=== PATIENT | female | born 1965 | race Caucasian/White ===

== ENCOUNTER 2018-11-10 08:09 | Day surgery (SDC) | payer MEDICAID ==
[~2018-11-10] VITALS: Ht 157.5 cm; Wt 72.5 kg
[2018-11-10] MEDS ORDERED: POLYMYXIN/BACITRACIN 1L IRRIG IRR ONE (08:30)
[2018-11-10] MEDS ORDERED: CLINDAMYCIN 600 MG/D5W (PMX) 50 ML IVPB ONE (08:30)
[2018-11-10] MEDS ORDERED: LIDOCAINE 1%/EPI (1:100,000) (MDV) 20 ML ONE ×2 (09:08→11:13)
[2018-11-10] MEDS ORDERED: HEPARIN 1000 UNITS/ML 10 ML INJ ONE (09:09)
[2018-11-10 09:30] VITALS: Ht 157.5 cm; Wt 72.5 kg
[2018-11-10 09:31] VITALS: BP 119/77; PULSE 68; RESP 16
[2018-11-10] MEDS ORDERED: LACTATED RINGER'S 1,000 ML IV SCH (10:00)
[2018-11-10] MEDS ORDERED: FENTAnyl 50 MCG/ML VIAL ONE (10:06)
[2018-11-10 12:25] VITALS: BP 101/64; PULSE 79; RESP 16
== END 2018-11-10 13:06 | disposition home or self-care (01) ==
LOC: SDS 08:09
PROVIDERS: ATTEND Internal Medicine Hematology & Oncology
DX: C50.911 Malignant neoplasm of unspecified site of right female breast (principal)
CPT/HCPCS: 36561; 76942; C1788; J1644; J3010; Z7610

== ENCOUNTER 2019-03-10 10:07 | Inpatient (IN) | payer MEDICAID ==
[~2019-03-10] VITALS: Ht 160 cm; Wt 73.3 kg
[2019-03-10] VITALS (26 sets, daily range): BP systolic 102–143; BP diastolic 56–74; PULSE 74–124; RESP 13–20; Ht 160 cm; Wt 73.3 kg
[~2019-03-10 10:07] MED LIST: VANCOMYCIN 1 GM 250 ML IVPB SCH
[2019-03-10] MEDS: SOD CHLORIDE 0.9% 1,000 ML IV SCH ×2 (11:18→18:51)
[2019-03-10] MEDS ORDERED: GLYCOPYRROLATE 0.4 MG INJ ONE ×2 (12:54→15:24)
[2019-03-10] MEDS ORDERED: SUCCINYLCHOLINE CHLORIDE 100 MG/5 ML SYG IV ONE (12:54)
[2019-03-10] MEDS ORDERED: LIDOCAINE 2% (SDV) 5 ML INJ ONE (12:54)
[2019-03-10] MEDS ORDERED: MEPERIDINE 100 MG INJ ONE (12:55)
[2019-03-10] MEDS ORDERED: NEOSTIGMINE 3 MG/3 ML SYRINGE ONE ×3 (12:55→15:24)
[2019-03-10] MEDS ORDERED: PROPOFOL 20 ML ONE (12:55)
[2019-03-10] MEDS ORDERED: ROCURONIUM 50 MG INJ ONE ×2 (12:55→16:16)
[2019-03-10] MEDS ORDERED: MEPERIDINE 25 MG INJ IV PRN (13:30)
[2019-03-10] MEDS ORDERED: hydrALAzine 20 MG INJ IV PRN (13:30)
[2019-03-10] MEDS ORDERED: LABETALOL HCL 20MG INJ IV PRN (13:30)
[2019-03-10] MEDS ORDERED: HYDROmorphONE 1 MG/5 ML IV SYRINGE IV PRN ×3 (13:30)
[2019-03-10] MEDS ORDERED: METOCLOPRAMIDE 10 MG INJ IV PRN (13:30)
[2019-03-10] MEDS ORDERED: ONDANSETRON 4 MG INJ IV PRN ×2 (13:30→16:30)
[2019-03-10] MEDS ORDERED: FENTAnyl 50 MCG/ML VIAL IV PRN ×3 (13:30)
[2019-03-10] MEDS ORDERED: MIDAZOLAM 1 MG/ML 2 ML INJ IV PRN (13:30)
[2019-03-10] MEDS ORDERED: EPHEDrine 25 MG/5 ML SYG IV PRN (13:30)
[2019-03-10] MEDS ORDERED: DIPHENHYDRAMINE 50 MG INJ IV PRN (13:30)
[2019-03-10] MEDS ORDERED: EPHEDrine 25 MG/5 ML SYG ONE (15:04)
[2019-03-10] MEDS ORDERED: METOCLOPRAMIDE 10 MG INJ ONE (16:12)
[2019-03-10] MEDS ORDERED: ONDANSETRON 4 MG INJ ONE (16:12)
[2019-03-10] MEDS ORDERED: ACETAMINOPHEN 1000MG/100ML IV 100 ML IVPB PRN (16:30)
[2019-03-10] MEDS: D5W-0.45 NACL + KCL 20 MEQ 1,000 ML IV SCH (18:41)
[2019-03-11 00:07] VITALS: BP 111/66; PULSE 78; RESP 20
[2019-03-11] MEDS: morphine 2 MG INJ IV PRN ×2 (03:07→22:57)
[2019-03-11] MEDS: D5W-0.45 NACL + KCL 20 MEQ 1,000 ML IV SCH ×3 (03:14→20:21)
[2019-03-11 04:04] VITALS: BP 118/67; PULSE 77; RESP 20
[2019-03-11 08:26] VITALS: BP 102/52; PULSE 63; RESP 20
[2019-03-11 14:25] VITALS: BP 111/59; PULSE 70; RESP 18
[2019-03-11 18:25] VITALS: BP 106/58; PULSE 68; RESP 18
[2019-03-11 19:05] VITALS: BP 127/69; PULSE 69; RESP 16
[2019-03-12] VITALS: BP 116/66; PULSE 74; RESP 18
[2019-03-12 04:00] VITALS: BP 119/56; PULSE 70; RESP 17
[2019-03-12] MEDS: D5W-0.45 NACL + KCL 20 MEQ 1,000 ML IV SCH ×3 (04:22→16:06)
[2019-03-12 07:44] VITALS: BP 124/71; PULSE 76; RESP 18
[2019-03-12] MEDS ORDERED: PANTOPRAZOLE (EC) 40 MG TAB PO ONE (08:00)
[2019-03-12] MEDS: HYDROCODONE/APAP (5/325) TAB PO PRN ×2 (08:30→14:53)
[2019-03-12] MEDS ORDERED: CEPASTAT LOZENGE MT PRN (13:00)
[2019-03-12 16:07] VITALS: BP_SYST 122; BP_SYST 133; BP_DIAS 69; PULSE 79; RESP 18
== END 2019-03-12 16:39 | disposition home or self-care (01) | DRG 580 ==
LOC: SDS 10:07 → REC 16:52 → MS1 18:05
PROVIDERS: ADMIT Surgery Surgical Oncology; ATTEND Surgery Surgical Oncology
PROC: 0GBG0ZX Excision of Left Thyroid Gland Lobe, Open Approach, Diagnostic (ICD-10-PCS; 2019-03-10)
PROC: 0GTM0ZZ Resection of Left Superior Parathyroid Gland, Open Approach (ICD-10-PCS; 2019-03-10)
PROC: 0HTT0ZZ Resection of Right Breast, Open Approach (ICD-10-PCS; principal; 2019-03-10 12:00)
PROC: 07B50ZX Excision of Right Axillary Lymphatic, Open Approach, Diagnostic (ICD-10-PCS; 2019-03-10 12:00)
DX: C50.411 Malignant neoplasm of upper-outer quadrant of right female breast (principal); C77.3 Secondary and unspecified malignant neoplasm of axilla and upper limb lymph nodes; Z17.0 Estrogen receptor positive status [ER+]; C73 Malignant neoplasm of thyroid gland
CPT/HCPCS: 80048; 80053; 82310; 85025; 88307; J0131; J1170; J1200; J2175; J2270; J2405; J2710; J2765; J3010; J3370; J3480; J7030